=== PATIENT | female | born 1995 | race Caucasian/White ===

== ENCOUNTER 2017-10-22 07:30 | Emergency (ER) | payer MEDICAID ==
--- NOTE | 2017-10-22 08:06 | EDM.PDOC ---
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 She began spotting 2 days ago, , 10/20/2017. She took a home test, which was positive. She is . The vaginal bleeding has increased, now to 1 pad every 3 hours. She denies any abdominal discomfort or cramping. No urinary symptoms. No complications with her prior , other than gestational diabetes. The patient and her family are moving from [place] to [place], [place], and are just passing through [place]. The patient does not have a PCP. - Related Data Allergies Allergy/AdvReac Type Severity Reaction Status Date / Time No Known Allergies Allergy Verified 10/22/17 07:43 Home Meds: Home Meds . [No Known Home Meds] 10/22/17 [History] Past Medical History HEENT History: Reports: Impaired Vision Other HEENT History: wears eyeglasses. 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: Musculoskeletal History: Reports: Fracture (right foot) Psychiatric History: Reports: Depression (untreated) Endocrine/Metabolic History: Reports: Diabetes, Gestational, Obesity/BMI 30+, Other (See Below) (Pituitary adenoma, untreated) - Past Surgical History HEENT Surgical History: Reports: Tonsillectomy Female Surgical History: Reports: Section (x 1) Musculoskeletal Surgical History: Reports: ORIF (right 5th metatarsal) Social & Family History - Tobacco Use Smoking Status *Q: Never Smoker Second Hand Smoke Exposure: No - Caffeine Use Caffeine Use: Reports: None - Alcohol Use Alcohol Use History: Yes Alcohol Use Frequency: Rarely - Recreational Drug Use Recreational Drug Use: No - Living Situation & Occupation Living situation: Reports: , with Spouse, with Family (1 son) Occupation: Unemployed ED ROS GENERAL - Review of Systems Review Of Systems: ROS reveals no pertinent complaints other than HPI. ED EXAM - Physical Exam Exam: See Below Exam Limited By: No Limitations General Appearance: Alert, WD/WN, No Apparent Distress Eye Exam: Bilateral Eye: EOMI, Normal Inspection Ears: Normal External Exam, Hearing Grossly Normal Nose: Normal Inspection, No Blood Throat/Mouth: Normal Inspection, Normal Lips, Normal Voice, No Airway Compromise Head: Atraumatic, Normocephalic Neck: Normal Inspection, Full Range of Motion Respiratory/Chest: No Respiratory Distress, Lungs Clear, Normal Breath Sounds, No Accessory Muscle Use Cardiovascular: Normal Peripheral Pulses, Regular Rate, Rhythm, No Gallop, No JVD, No Murmur, No Rub GI/Abdominal Exam: Normal Bowel Sounds, Soft, Non-Tender, No Organomegaly, No Distention, No Abnormal Bruit, No Mass, Pelvis Stable, Other (Obese) Rectal Exam: Deferred (Female) Exam: Normal External Exam, Vaginal Bleeding (small quantity). No: Cervical Dilatation (cervix nulliparous, closed), Cervical Discharge, Cervical Lesions, Cervix Motion Tenderness, Vaginal Discharge, Vaginal Lesions, Vaginal Tears Back Exam: Normal Inspection, Full Range of Motion. No: CVA Tenderness (L), CVA Tenderness (R) Extremities: Normal Inspection, Normal Range of Motion, Normal Capillary Refill , Other (Trace bilateral LE edema) Neurological: Alert, Oriented, Normal Cognition, No Motor/Sensory Deficits Psychiatric: Normal Affect Skin Exam: Warm, Dry, Intact, Normal Color, No Rash Course - Vital Signs Last Recorded V/S: Last Vital Signs Temp 37.1 C 10/22/17 07:35 Pulse 68 10/22/17 07:35 Resp 20 10/22/17 07:35 BP 117/74 10/22/17 07:35 Pulse Ox 99 10/22/17 07:35 Orthostatic Blood Pressure [ 104/71 Standing] Orthostatic Blood Pressure [ 107/69 Sitting] Orthostatic Blood Pressure [ 96/64 Supine] - Orders/Labs/Meds Orders: Active Orders 24 hr Category Date Time Status Orthostatic Vital Signs [RC] STAT Care 10/22/17 07:51 Active OB Transvaginal [US] Stat Exams 10/22/17 08:00 Taken Labs: Laboratory Tests 10/22/17 10/22/17 Range/Units 08:25 08:25 WBC 9.19 (3.98-10.04) K/mm3 RBC 4.40 (3.98-5.22) M/mm3 Hgb 12.4 (11.2-15.7) gm/L Hct 38.8 (34.1-44.9) % MCV 88.2 (79.4-94.8) fl MCH 28.2 (25.6-32.2) pg MCHC 32.0 L (32.2-35.5) g/dl RDW Std Deviation 46.1 (36.4-46.3) fL Plt Count 228 (182-369) K/mm3 MPV 10.5 (9.4-12.3) fl Neutrophils % (Manual) 60 (40-60) % Band Neutrophils % 0 (0-10) % Lymphocytes % (Manual) 36 (20-40) % Atypical Lymphs % 0 % Monocytes % (Manual) 4 (2-10) % Eosinophils % (Manual) 0 L (0.7-5.8) % Basophils % (Manual) 0 L (0.1-1.2) Platelet Estimate Adequate RBC Morph Comment Normal HCG, Quant 359.0 mIU/mL - Re-Assessments/Exams Free Text/Narrative Re-Assessment/Exam: 10/22/17 08:21 The patient is not orthostatic. 10/22/17 10:34 Transvaginal ultrasound is read by [facility] as "Irregularly-shaped fluid collection in the lower uterine segment. Mean sac diameter 8 mm. No definite pole. No yolk sac. Not clearly an intrauterine . Differential includes miscarriage in process." 10/22/17 10:[address] Pantoja at 10:36. She recommends that the patient obtain a repeat quantitative hCG in 48 hours, to further exclude ectopic versus early . 10/22/17 10:50 Test results discussed with the patient. Find that the patient is likely suffering from a miscarriage, but that she needs to follow-up in 48 hours for repeat quantitative hCG. She states that she expects to be in [facility] at that time. Departure - Departure Time of Disposition: 10:50 Disposition: Home, Self-Care 01 Condition: Good Clinical Impression: Vaginal bleeding, Elevated serum hCG - Discharge Information *PRESCRIPTION DRUG MONITORING PROGRAM REVIEWED*: Not Applicable *COPY OF PRESCRIPTION DRUG MONITORING REPORT IN PATIENT SAMI: Not Applicable Referrals: PCP,None [Primary Care Provider] - Forms: ED Department Discharge Additional Instructions: You were seen in the emergency room for vaginal bleeding since , 2017, along with a positive home test. Workup in the ER included a CBC, a quantitative hCG, positional blood pressure checks, and a transvaginal ultrasound. Your CBC and positional blood pressure checks were normal. Your quantitative hCG returned very low at 359. This is consistent with either a very early , a miscarriage, or an ectopic . The transvaginal ultrasound found some irregularly-shaped fluid in the lower portion of your uterus, but no definite pole or yolk sac. The possibilities include very early , miscarriage, or an ectopic . You case was discussed with the [employer] Dr. Rosaura Pantoja, who recommended that you have a repeat quantitative hCG in 48 hours (Tuesday, ). If your quantitative hCG is falling, you have suffered a miscarriage. If it is rising, you are , but an ectopic would need to be ruled out. If any other problems, please do not hesitate to return to the ER. - My Orders Last 24 Hours: My Active Orders 10/22/17 07:51 Orthostatic Vital Signs [RC] STAT 10/22/17 08:00 OB Transvaginal [US] Stat - Assessment/Plan Last 24 Hours: My Active Orders 10/22/17 07:51 Orthostatic Vital Signs [RC] STAT 10/22/17 08:00 OB Transvaginal [US] Stat
--- NOTE | 2017-10-24 19:39 | US ---
First trimester obstetrical ultrasound: Multiple real-time images were obtained transvaginally. Transabdominal imaging also was obtained of the right ovary. Findings: Small cystic area noted within the endometrial cavity within the lower uterus. This is too small to identify pole or yolk sac. Uterus is otherwise unremarkable. Right and left ovaries appear unremarkable. No adnexal abnormalities are seen. Impression: 1. Small cystic area within the lower endometrial cavity. This is abnormal in position and could represent impending miscarriage. If patient continues to be symptomatic, recommend repeat study in 11 days. Diagnostic code #3 I agree with preliminary report issued by [facility] ([facility] report finalized on 10/22/17, 11:06 AM Central Time)
== END 2017-10-22 10:55 | disposition home or self-care (01) ==
LOC: JD.ED 07:30 → EDBD 07:30 → JD.ED 10:55
DX: O20.9 Hemorrhage in early pregnancy, unspecified (principal); O02.81 Inappropriate change in quantitative human chorionic gonadotropin (hCG) in early pregnancy; O99.211 Obesity complicating pregnancy, first trimester; E66.9 Obesity, unspecified
CPT/HCPCS: 36415; 76817; 76817-26; 84702; 85007; 85027; 99283; 99284-25